=== PATIENT | female | born 1975 | race Caucasian/White ===

== ENCOUNTER 2020-05-04 18:41 | Emergency (ER) | payer MEDICAID, SELFPAY ==
[~2020-05-04] VITALS: Ht 157.5 cm; Wt 81.6 kg
[2020-05-04 19:00] VITALS: BP_SYST 156
[2020-05-04 19:43] LABS: BASOPHILS # (AUTO) 0.1 K/uL (0.0-0.2); BASOPHILS % (AUTO) 0.7 % (0.0-2.0); EOSINOPHILS % (AUTO) 0.2 % (0.0-4.0); HEMATOCRIT 30.2 % (36-48); HEMOGLOBIN 10.3 g/dL (12.0-16.0); LYMPHOCYTES # (AUTO) 1.1 K/uL (1.0-5.5); LYMPHOCYTES % (AUTO) 7.8 % (20.5-51.5); MEAN CORPUSCULAR HEMOGLOBIN 33 pg (27-31); MEAN CORPUSCULAR HGB CONC 34 % (32-36); MEAN CORPUSCULAR VOLUME 97 fL (79.0-98.0); MONOCYTES # (AUTO) 0.3 K/uL (0.0-1.0); MONOCYTES % (AUTO) 2.3 % (1.7-9.3); NEUTROPHILS # (AUTO) 12.4 K/uL (1.8-7.7); PLATELET COUNT (AUTO) 434 K/uL (130-430); RED BLOOD CELL COUNT(AUTO) 3.11 MIL/uL (4.2-6.2); RED CELL DISTRIBUTION WIDTH 18.6 % (9.0-15.0); WHITE BLOOD COUNT (AUTO) 13.9 K/uL (4.8-10.8)
[2020-05-04] MEDS ORDERED: fentaNYL CITRATE/PF 100 MCG/2 ML AMP IVP ONE (19:45)
[2020-05-04 19:56] LABS: CALCIUM 9.3 mg/dL (8.4-11.0); CREATININE 1.08 mg/dL (0.55-1.30); POTASSIUM 3.8 mmol/L (3.5-5.1)
[2020-05-04 20:02] LABS: INR 1.1 (0.8-1.2); PROTHROMBIN TIME 10.8 SECS (9.5-12.5)
[2020-05-04 20:07] LABS: ALBUMIN 2.8 g/dL (3.4-4.8); TOTAL BILIRUBIN 0.3 mg/dL (0.0-1.0)
[2020-05-04] MEDS ORDERED: KETAMINE 30 MG/3 ML SYRINGE IVP ONE (20:15)
[2020-05-04] MEDS ORDERED: LORazepam 2 MG/ML VIAL IVP ONE (20:30)
[2020-05-04] MEDS ORDERED: LORazepam 2 MG/ML VIAL ONE (20:30)
[2020-05-05] MEDS ORDERED: fentaNYL CITRATE/PF 100 MCG/2 ML AMP IVP ONE (00:45)
[2020-05-05 01:36] VITALS: BP_SYST 140
== END 2020-05-05 01:36 | disposition home or self-care (01) ==
LOC: SED 18:41
DX: R19.00 Intra-abdominal and pelvic swelling, mass and lump, unspecified site (principal); N93.9 Abnormal uterine and vaginal bleeding, unspecified; Z20.822 Contact with and (suspected) exposure to COVID-19
CPT/HCPCS: 36415; 76857; 80053; 84702; 85025; 85610; 85730; 86886; 86900; 86901; 87426; 96374; 96375; 96376; 99285; J2060; J3010 ×2